=== PATIENT | male | born 2000 | race Caucasian/White ===

== ENCOUNTER 2020-05-05 16:57 | Emergency (ER) | payer OTHER ==
[~2020-05-05 16:57] MED LIST: BACTROBAN OINT22 GM EXT; IBUPROFEN600 MG PO; MOBIC15 MG PO; NAPROSYN500 MG PO
[2020-05-05] MEDS ORDERED: IBUPROFEN600 MG PO (18:24)
[2020-05-05] MEDS ORDERED: CLEOCIN HCL300 MG PO (18:24)
[2020-05-05] MEDS ORDERED: BACTROBAN OINT22 GM EXT (18:24)
== END 2020-05-05 18:33 | disposition home or self-care (01) ==
LOC: ER1 16:57
DX: L02.31 Cutaneous abscess of buttock (principal); I10 Essential (primary) hypertension; F17.210 Nicotine dependence, cigarettes, uncomplicated; Z86.73 Personal history of transient ischemic attack (TIA), and cerebral infarction without residual deficits
CPT/HCPCS: 10060; 87070; 87077; 87186; 87205; 99282